=== PATIENT | female | born 1950 | race Caucasian/White ===

== ENCOUNTER → 2019-04-02 14:03 | Outpatient (CLI) | payer MEDICARE, SELFPAY | PROVIDERS: PCP Family Medicine; Referring Provider Family Medicine; Visit Provider Internal Medicine Gastroenterology | DX: M05.841 Other rheumatoid arthritis with rheumatoid factor of right hand (principal); R10.11 Right upper quadrant pain ==

== ENCOUNTER → 2019-04-02 14:17 | Outpatient (CLI) | payer MEDICARE, SELFPAY ==
--- NOTE | 2019-04-02 | DI.RAD.S_ITS ---
PROCEDURE: XR FINGER RT MIN 2V INDICATIONS: Other rheumatoid arthritis with rheumatoid factor of right h TECHNIQUE: AP hand, 2 views of the right fourth finger(s) acquired. COMPARISON: None. FINDINGS: Bones: There is a well-corticated osseous fragment distal to the right ulnar styloid, consistent with prior chronic old ulnar styloid fracture. There are mild degenerative changes involving the right STT joint, right first carpal metacarpal joint, right first metacarpal phalangeal joint, and right first through fifth interphalangeal joints as evidenced by osteophyte formation, periarticular sclerosis, and joint space narrowing. There is prominent involvement of degenerative changes at the right fourth proximal interphalangeal joint. Soft tissues: No suspicious soft tissue calcifications. IMPRESSION: Mild diffuse degenerative changes of the right hand (with prominent involvement of the right fourth proximal interphalangeal joint) as described above. Dictated by: Jamey Bryan M.D. on 04/02/2019 at 15:53 Approved by: Jamey Bryan M.D. on 04/02/2019 at 15:57
== END ==
PROVIDERS: PCP Family Medicine; Visit Provider Family Medicine
DX: M05.841 Other rheumatoid arthritis with rheumatoid factor of right hand (principal)
CPT/HCPCS: 73140

== ENCOUNTER → 2019-11-07 12:37 | Outpatient (CLI) | payer MEDICARE, SELFPAY ==
--- NOTE | 2019-11-07 12:43 | DI.US.S_ITS ---
PROCEDURE: US ABDOMEN COMPLETE INDICATIONS: RIGHT UPPER QUADRANT AND LEFT UPPER QUADRANT PAIN TECHNIQUE: Real-time scanning was performed of the abdominal and retroperitoneal organs, with image documentation. COMPARISON: None. FINDINGS: Liver: The liver demonstrates normal size. The liver demonstrates generalized increased echogenicity. This decreases ultrasound sensitivity for detection of hepatic masses. Gallbladder: No findings of gallstones or sludge are seen. The gallbladder wall is not thickened, measuring 3 mm or less. No specific pericholecystic fluid is seen. The sonographic Parikh sign is negative. Biliary ducts: Intrahepatic bile ducts are non-dilated. Extrahepatic bile duct caliber measures 6 mm. Normal is 6-7 mm or less in diameter, or 10 mm or less post-cholecystectomy. Pancreas: Visualized portions of the pancreas are sonographically normal. Spleen: Spleen is normal in size and homogeneous in echotexture. Kidneys: Kidneys are normal in size and echotexture. Right kidney measures 11.7 cm long; left kidney measures 11 cm long. No nephrolithiasis. No solid masses. No mitch hydronephrosis is seen, although there is apparent bilateral extrarenal pelvis. The left kidney demonstrates a simple appearing cyst superiorly measuring 4.9 cm. Aorta: Visualized aorta is normal in caliber at less than 3 cm. Iliacs: Proximal common iliac arteries are normal in caliber at less than 2.5 cm. IVC: Intrahepatic inferior vena cava is patent. Miscellaneous: No free abdominal fluid. The prevoid bladder volume is 65 cc. The postvoid bladder volume is 27 cc. IMPRESSION: The gallbladder demonstrates a normal sonographic appearance. No biliary dilatation is seen. The liver demonstrates increased echogenicity. This finding is nonspecific, yet it is most commonly attributed to fatty infiltration. Incidental note is made of: Bilateral extrarenal pelvis 4.9 cm simple appearing left renal cyst Moderate postvoid residual, 27 cc Dictated by: Alber Robertson M.D. on 11/07/2019 at 14:56 Approved by: Alber Robertson M.D. on 11/07/2019 at 14:58
== END ==
PROVIDERS: PCP Family Medicine; Referring Provider Internal Medicine Gastroenterology; Visit Provider Internal Medicine Gastroenterology
DX: R10.11 Right upper quadrant pain (principal); N28.1 Cyst of kidney, acquired
CPT/HCPCS: 76700

== ENCOUNTER 2019-11-07 13:42 | Emergency (ER) | payer MEDICARE, SELFPAY ==
[2019-11-07 13:48] VITALS: BP 137/74; PULSE 74; RESP 18; TEMP 36.6; O2SAT 99; BMI 35.2
[2019-11-07 15:05] VITALS: BP 128/74; PULSE 74; RESP 18; O2SAT 100
--- NOTE | 2019-11-07 15:26 | DI.RAD.S_ITS ---
PROCEDURE: XR CERVICAL SPINE 2V OR 3V INDICATIONS: neck pain TECHNIQUE: 3 view(s) of the cervical spine were acquired. COMPARISON: [facility], XR CERVICAL SPINE 6+ VIEWS, 04/09/2017, 16:05. FINDINGS: Bones: On the lateral view, the cervicothoracic junction is adequately visualized and the alignment through this region is within normal limits. The vertebral body heights and prevertebral soft tissues are within normal limits throughout the cervical spine without evidence to suggest acute compression fracture. The bone mineralization is within normal limits. 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 Moderate to severe degenerative changes of the cervical spine are most pronounced at the C3-4 and C5-6 levels. The degree of degenerative changes are similar to the previous examination. There is grade 1 anterolisthesis of C3 on C4, which is similar to the prior study, as well. Soft tissues: No prevertebral soft tissue swelling. The imaged overlying soft tissues of the neck are within normal limits. IMPRESSION: 1. No acute fractures of the cervical spine are evident. 2. Moderate to severe degenerative changes of the cervical spine are similar to the prior study. Dictated by: Tyree Lopez M.D. on 11/07/2019 at 14:58 Approved by: Tyree Lopez M.D. on 11/07/2019 at 15:01
[2019-11-07] MEDS: KETOROLAC 60 MG/2 ML VIAL 30 MG IM (15:44)
--- NOTE | 2019-11-07 16:21 | ED.HA ---
HPI - Headache <CADEN Lipscomb-BC - Last Filed: 11/07/19 17:30> General Chief Complaint: Headache Stated Complaint: FALL A MONTH AGO HIT HEAD MIGRAINES TOOTH NUMBNESS Time Seen by Provider: 11/07/19 15:05 Source: patient Mode of arrival: Family Vehicle Limitations: no limitations History of Present Illness HPI Narrative: The patient is a 69-year-old female nonsmoker with history of abdominal pain who presents with a chief complaint of fall a month ago. She states she slipped while sitting on the couch and hit her face specifically her upper jaw on the arm of a couch. She did not lose consciousness. She did not seek health care after this. She states this happened 1 month ago today. She complains of transient ?numb teeth,a watering of right eye and midnight with no visual deficit or eye pain, pressure in her forehead. She denies any difficulty eating chewing or swallowing. She denies any lightheadedness or dizziness. She states she does have trouble focusing and feels tired at times. She states that she was here getting abdominal ultrasound for an unrelated complaint ordered by her primary care provider, so she came to the emergency department. Related Data Previous Rx's Medication Instructions Recorded cyclobenzaprine 10 mg PO TID PRN #20 tab 11/07/19 ketorolac 10 mg PO TID PRN #14 tab 11/07/19 Allergies Allergy/AdvReac Type Severity Reaction Status Date / Time No Known Drug Allergies Allergy Verified 11/07/19 13:52 Review of Systems <CADEN Lipscomb- - Last Filed: 11/07/19 17:30> Review of Systems Narrative: GENERAL: Denies chills, fatigue, malaise, fever, sweats. HEENT: Denies sinus pain, ear pain, sore throat, difficulty swallowing, dizziness. RESPIRATORY: Denies dyspnea, cough, wheezing, hemoptysis, sputum. CARDIOVASCULAR: Denies chest pain, palpitations, orthopnea, edema, GASTROINTESTINAL: Denies nausea, vomiting, abdominal pain, diarrhea, constipation, melena. : Denies dysuria, frequency, incontinence, hematuria, urinary retention. MUSCULOSKELETAL: See HPI SKIN: Denies rash, skin lesions, or other NEUROLOGIC: See HPI PSYCHIATRIC: No concerning psychosocial issues. 12 point review of systems is negative except for those stated above Patient History <Camila HernandezJUSTINP-BC - Last Filed: 11/07/19 17:30> Social History Smoking Status: Never smoker Smoking Status: Never smoker alcohol intake frequency: holidays/special occasions only Alcohol type: hard liquor Substance Use Type: does not use Exam <Camila Hernandez HAND TOUCH UP PAINTER-BC - Last Filed: 11/07/19 17:30> Narrative Exam Narrative: GENERAL: This is a well-nourished, well-developed patient, no acute distress HEAD: Atraumatic. Normocephalic. No temporal or scalp tenderness. No pain to palpation of facial bones. No trismus. Able to open and close jaw EYES: Pupils equal round and reactive. Extraocular motions intact. No scleral icterus. No injection or drainage. ENT: Nose without bleeding, purulent drainage or septal hematoma. Throat without erythema, tonsillar hypertrophy or exudate. Uvula midline. Airway patent. NECK: Trachea midline. No JVD or lymphadenopathy. Supple, nontender, no meningeal signs. CARDIOVASCULAR: Regular rate and rhythm RESPIRATORY: Clear to auscultation. Breath sounds equal bilaterally. No wheezes, rales, or rhonchi. GASTROINTESTINAL: Abdomen soft, non-tender, nondistended. No hepato-splenomegaly, or palpable masses. No guarding. EXTREMITIES: No clubbing, cyanosis, or edema. No joint tenderness, effusion, or edema noted. BACK: Nontender without deformity or crepitance. No flank tenderness. No pain to palpation of CT or L-spine. Pain to bilateral paraspinal muscles of cervical spine. NEURO: AOx3. SKIN: No rash or erythema. No ecchymosis laceration or abrasion noted on face or head. No Lea signs. No periorbital ecchymosis. Initial Vital Signs Initial Vital Signs: Vital Signs Temperature 97.9 F 11/07/19 13:48 Pulse Rate 74 11/07/19 13:48 Respiratory Rate 18 11/07/19 13:48 Blood Pressure 137/74 11/07/19 13:48 Pulse Oximetry 99 11/07/19 13:48 <Kyree Bender MD - Last Filed: 11/08/19 07:19> Initial Vital Signs Initial Vital Signs: Vital Signs Temperature 97.9 F 11/07/19 13:48 Pulse Rate 74 11/07/19 13:48 Respiratory Rate 18 11/07/19 13:48 Blood Pressure 137/74 11/07/19 13:48 Pulse Oximetry 99 11/07/19 13:48 Scores <KRISTIAN Lipscomb - Last Filed: 11/07/19 17:30> GCS [place] coma scale eye opening: Spontaneous [place] coma scale verbal response: Orientated [place] coma scale motor response: Obey commands [place] coma scale total score: 15 Nexus Score for C-Spine Focal Neurologic deficit present: No Midline spinal tenderness present: No Altered level of conciousness present: No Intoxication present: No Distracting Injury Present: No Nexus Criteria for C-spine: 0 Course <KRISTIAN Lipscomb - Last Filed: 11/07/19 17:30> Orders Ordered: Discontinued Medications Ketorolac Tromethamine (Toradol) 30 mg IM NOW ONE Stop: 11/07/19 15:27 Last Admin: 11/07/19 15:44 Dose: 30 mg Documented by: CRYSTAL Vital Signs Vital signs: Vital Signs - 8 hr 11/07/19 13:48 11/07/19 15:05 11/07/19 17:00 Temperature 97.9 F Pulse Rate 74 74 67 Respiratory Rate 18 18 Blood Pressure 137/74 Blood Pressure [Left Arm] 128/74 121/70 Pulse Oximetry 99 100 98 <Kyree Bender MD - Last Filed: 11/08/19 07:19> Orders Ordered: Discontinued Medications Ketorolac Tromethamine (Toradol) 30 mg IM NOW ONE Stop: 11/07/19 15:27 Last Admin: 11/07/19 15:44 Dose: 30 mg Documented by: CRYSTAL Vital Signs Vital signs: Vital Signs - 8 hr 11/07/19 13:48 11/07/19 15:05 11/07/19 17:00 Temperature 97.9 F Pulse Rate 74 74 67 Respiratory Rate 18 18 Blood Pressure 137/74 Blood Pressure [Left Arm] 128/74 121/70 Pulse Oximetry 99 100 98 MDM - Headache <KRISTIAN Lipscomb - Last Filed: 11/07/19 17:30> Imaging Data Cervical spine x-ray: Radiologist's Impression: [facility] [place] [id number] XRay Report Signed Patient: Justine Yanes VMR#: [id number] : 2Acct:[id number] Age/Sex: 69 / FDate of Service: 11/07/19 Loc: ED Accession Number: [id number] Procedure: XR cervical spine 2V or 3V Ordering Provider: Camila Hernandez PROCEDURE: XR CERVICAL SPINE 2V OR 3V INDICATIONS: neck pain TECHNIQUE: 3 view(s) of the cervical spine were acquired. COMPARISON: [facility] [place], [place], XR CERVICAL SPINE 6+ VIEWS, 04/09/2017, 16:05. FINDINGS: Bones: On the lateral view, the cervicothoracic junction is adequately visualized and the alignment through this region is within normal limits. The vertebral body heights and prevertebral soft tissues are within normal limits throughout the cervical spine without evidence to suggest acute compression fracture. The bone mineralization is within normal limits. 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 Moderate to severe degenerative changes of the cervical spine are most pronounced at the C3-4 and C5-6 levels. The degree of degenerative changes are similar to the previous examination. There is grade 1 anterolisthesis of C3 on C4, which is similar to the prior study, as well. Soft tissues: No prevertebral soft tissue swelling. The imaged overlying soft tissues of the neck are within normal limits. IMPRESSION: 1. No acute fractures of the cervical spine are evident. 2. Moderate to severe degenerative changes of the cervical spine are similar to the prior study. Dictated by: Tyree Lopez M.D. on 11/07/2019 at 14:58 Approved by: Tyree Lopez M.D. on 11/07/2019 at 15:01 [facility] Narrative Medical decision making narrative: The patient is a 69-year-old female who presents 1 month after a fall with multiple complaints including watery eye, numb teeth etcetera. She has no pain to palpation of her facial bones, no trismus, normal EOMs and a normal neurological exam. I discussed at length the importance of following up with primary care provider as well as coming back to the emergency department for any acute concerns. She felt improved after the dose of Toradol in the above-stated therapies, so I gave her prescriptions thereof. I discussed that we obtain imaging of her head to check for skull fracture and/or head bleed, and she has been neurologically intact throughout her stay and is at least 1 month after injury. I discussed at length coming back to ER for any acute concerns. Patient has no questions or concerns upon discharge and states understanding of return precautions as well as follow-up care. Discharge Plan Departure Patient Disposition: Home Clinical Impression: Neck pain, Post concussion syndrome Discharge Date/Time: 11/07/19 17:26 Instructions: Neck Pain (Alternative Therapy), DI for Postconcussion Syndrome, DI for Neck Pain Activity Restrictions/Additional Instructions: Thank you for trusting us with your care today Your visual acuity came back well. Your neck x-ray had no acute findings. Your symptoms correlate with musculoskeletal neck pain as well as post concussive syndrome I have given you a prescription of Toradol. This is an NSAID. Do not combine it with other NSAIDs such as Aleve or ibuprofen. I suggest taking it with some food, as it can irritate your stomach. I also sent in a prescription of cyclobenzaprine for your neck pain. This can be sedating. Do not take and drive or combine it with anything sedating. Please follow-up with primary care provider in the next few days. Prescriptions: New ketorolac 10 mg tablet 10 mg PO TID PRN (Reason: pain) Qty: 14 RF: 0 cyclobenzaprine 10 mg tablet 10 mg PO TID PRN (Reason: muscle spasm) Qty: 20 RF: 0 Referrals: Mat Holder MD [Primary Care Provider] -
[2019-11-07 17:00] VITALS: BP 121/70; PULSE 67; O2SAT 98
== END 2019-11-07 17:26 | disposition home or self-care (01) ==
PROVIDERS: Emergency Provider Nurse Practitioner Family; PCP Family Medicine
DX: F07.81 Postconcussional syndrome (principal); M54.2 Cervicalgia; R10.11 Right upper quadrant pain; N28.1 Cyst of kidney, acquired
CPT/HCPCS: 72040; 76700; 96372; 99283; J1885

== ENCOUNTER 2023-02-01 17:07 | Emergency (ER) | payer MEDICARE, SELFPAY ==
[2023-02-01 17:18] VITALS: BP 156/84; PULSE 91; RESP 16; TEMP 36.4; O2SAT 100; BMI 35.1
== END 2023-02-01 23:22 | disposition left against medical advice (07) ==
PROVIDERS: PCP Family Medicine
CPT/HCPCS: 99281

== ENCOUNTER 2023-02-02 16:12 | Emergency (ER) | payer OTHER, SELFPAY ==
[2023-02-02 17:09] VITALS: BP 142/74; PULSE 87; RESP 16; TEMP 36.9; O2SAT 97; BMI 34.4
[2023-02-02 20:29] VITALS: BP 154/73; PULSE 83; RESP 18; O2SAT 97
--- NOTE | 2023-02-02 20:41 | ED.SKABFB ---
HPI - Skin/Abscess/Foreign Bdy General Chief complaint: Skin/Abscess/Foreign Body Stated complaint: Shingles pain T-10 Time Seen by Provider: 02/02/23 20:33 Source: patient Mode of arrival: Ambulatory History of Present Illness HPI narrative: Patient is a 73-year-old female who 10 days ago was diagnosed with shingles. She stated that she is completed the course of antiviral medicines although she is still having quite a bit of discomfort. There are no new blisters. It is located on her right upper back and around her right chest. She does not have any pain medication at home. Related Data Previous Rx's Medication Instructions Recorded hydrocodone 5 mg-acetaminophen 325 1 tab PO Q4-6H PRN pain #14 tabs 02/02/23 mg tablet hydrocodone 5 mg-acetaminophen 325 1 tab PO Q4-6H PRN pain #14 tabs 02/02/23 mg tablet Allergies Allergy/AdvReac Type Severity Reaction Status Date / Time No Known Drug Allergies Allergy Verified 02/02/23 17:09 Review of Systems Constitutional Constitutional: Reports system reviewed and no additional complaints, except as documented Integumentary/Breasts Skin/Breast: Reports system reviewed and no additional complaints, except as documented Neurologic Neurologic: Reports system reviewed and no additional complaints, except as documented Patient History Social History Smoking Status: Never smoker Smoking Status: Never smoker alcohol intake frequency: holidays/special occasions only Alcohol type: hard liquor Substance Use Type: does not use Exam Initial Vital Signs Initial Vital Signs: Vital Signs Temperature 98.5 F 02/02/23 17:09 Pulse Rate 87 02/02/23 17:09 Respiratory Rate 16 02/02/23 17:09 Blood Pressure 142/74 H 02/02/23 17:09 Pulse Oximetry 97 02/02/23 17:09 Oxygen Delivery Method Room Air 02/02/23 17:09 Const General: cooperative and comfortable Resp Effort & Inspection: normal respiratory effort Skin Other: Skin rash located the right upper back and flank at approximately the T4/T5 region that is consistent with shingles. There are no active vesicles Neuro General: patient alert and patient awake Course Orders Ordered: Discontinued Medications Hydrocodone Bitart/Acetaminophen (Hydrocodone/Acet 5/325 Prepack) 1 bottle MISC SEEINSTR ONE Stop: 02/02/23 20:42 Last Admin: 02/02/23 20:50 Dose: 1 bottle Documented By: PAOLA Vital Signs Vital signs: Vital Signs - 8 hr 02/02/23 20:29 Pulse Rate 83 Respiratory Rate 18 Blood Pressure 154/73 H Pulse Oximetry 97 Oxygen Delivery Method Room Air MDM - Skin/Abscess/Foreign Bdy MDM Narrative Medical decision making narrative: Patient does have a rash that is consistent with shingles. There are no new vesicles noted. She is having quite a bit of discomfort which is not surprising given the location the extent of the rash. She has completed a course of antivirals. We will provide pain medication. There is no indication of any supra infection. She was given return precautions. She expressed understanding and agreement. Discharge Plan Departure Patient Disposition: Home Clinical Impression: Shingles Instructions: DI for Shingles Activity Restrictions/Additional Instructions: You can continue to use the topical creams that you have at home. Use the pain medication has not needed. Contact your primary doctor for a follow-up. Return to the emergency department for new or worsening symptoms. Prescriptions: New hydrocodone-acetaminophen 5-325 mg tablet 1 tab PO Q4-6H PRN (Reason: pain) Qty: 14 0RF hydrocodone-acetaminophen 5-325 mg tablet 1 tab PO Q4-6H PRN (Reason: pain) Qty: 14 0RF Referrals: Pollo Dorman MD [Primary Care Provider] - Stand Alone Forms: Patient Portal/API
[2023-02-02] MEDS: HYDROCODONE/ACET 5/325 PREPACK 1 BOTTLE MISC (20:50)
== END 2023-02-02 20:59 | disposition home or self-care (01) ==
PROVIDERS: Emergency Provider Emergency Medicine; PCP Family Medicine
DX: B02.9 Zoster without complications (principal)
CPT/HCPCS: 99281; 99283